=== PATIENT | female | born 1940 | race Native Hawaiian/Other Pacific Islander ===

== ENCOUNTER 2018-07-02 09:41 | Emergency (ER) | payer OTHER ==
[2018-07-02 09:41] VITALS: BMI 34.4
--- NOTE | 2018-07-02 10:22 | ED PDOC ---
HPI: General Adult Time Seen by Provider: 07/02/18 09:51 Chief Complaint (Nursing): Back Pain Past Medical History Vital Signs: Last Vital Signs Temp 98.4 F 07/02/18 09:52 Pulse 65 07/02/18 09:52 Resp 18 07/02/18 09:52 BP 131/69 07/02/18 09:52 Pulse Ox 100 07/02/18 10:22 - Medical History PMH: Anxiety, Asthma, Depression, Diabetes, HTN, Hypercholesterolemia, Peripheral Edema Denies: Chronic Kidney Disease - Family History Family History: States: Unknown Family Hx - Home Medications Home Medications: Ambulatory Orders Medication Instructions Recorded Multivitamin [One Daily] 1 tab PO DAILY 08/22/16 Aspirin [Aspirin Chewable] 81 mg PO DAILY #30 chew 08/25/16 Rosuvastatin Calcium [Crestor] 10 mg PO HS #30 tab 08/25/16 Clopidogrel [Plavix] 75 mg PO DAILY 06/22/17 FLUoxetine [Prozac] 40 mg PO DAILY 06/22/17 Metoprolol Tartrate [Lopressor] 25 mg PO DAILY 06/22/17 clonazePAM [Klonopin] 0.5 mg PO TID 06/22/17 Isosorbide Mononitrate ER [Imdur 90 mg PO DAILY #30 tab 06/23/17 ER] Lisinopril [Zestril] 10 mg PO DAILY #30 tab 06/23/17 Nitrofurantoin Macrocrystals 100 mg PO Q12H #14 cap 06/23/17 [Macrobid] Ranolazine [Ranexa] 500 mg PO BID #60 ter 06/23/17 clonazePAM [Klonopin] 0.5 mg PO TID tab 06/23/17 - Allergies Allergies/Adverse Reactions: Allergies Allergy/AdvReac Type Severity Reaction Status Date / Time No Known Allergies Allergy Verified 08/22/16 19:33 - Laboratory Results Result Diagrams: 07/02/18 10:39 07/02/18 10:39 - ECG O2 Sat by Pulse Oximetry: 100 Medical Decision Making Medical Decision Making: case d/w Dr. Lassiter 10:15am - though asymptomatic and hemodynamically stable, advised cardiac enzyme and discharge for followup with him if normal. Disposition - Clinical Impression Clinical Impression: Chronic back pain, History of stress test, Coronary artery disease - Patient ED Disposition Is Patient to be Admitted: No Doctor Will See Patient In The: Office Counseled Patient/Family Regarding: Diagnosis, Need For Followup - Disposition Referrals: Dayo Lassiter MD [Staff Provider] - Disposition: Routine/Home Disposition Time: 13:00 Condition: STABLE Instructions: Coronary Heart Disease (DC) Forms: [facility] (Pashto) - POA Present On Arrival: None
[2018-07-02 10:57] LABS: BASO # 0.1 K/uL (0.0-0.2); BASO % 0.7 % (0.0-2.0); EOS # 0.3 K/uL (0.0-0.7); EOS % 2.9 % (0.0-4.0); HEMOGLOBIN 12.2 g/dL (12.0-16.0); LYMPH # 1.9 K/uL (1.0-4.3); LYMPH % 20.6 % (20.0-40.0); MEAN CELL VOLUME 94.1 fl (81.0-99.0); MEAN CORPUSCULAR HEMOGLOBIN 32.4 pg (27.0-31.0); MEAN CORPUSCULAR HGB CONC 34.4 g/dL (33.0-37.0); MEAN PLATELET VOLUME 8.4 fl (7.2-11.7); MONO # 0.6 K/uL (0.0-0.8); MONO % 6.9 % (0.0-10.0); NEUT # 6.5 K/uL (1.8-7.0); NEUT % 68.9 % (50.0-75.0); RBC 3.77 Mil/uL (3.80-5.20); RED CELL DISTRIBUTION WIDTH 12.9 % (11.5-14.5); WHITE BLOOD COUNT 9.4 K/uL (4.8-10.8)
[2018-07-02 11:20] LABS: BLOOD UREA NITROGEN 19 mg/dl (7-17); CALCIUM 9.6 mg/dL (8.4-10.2); GFR NON-AFRICAN AMERICAN 54
--- NOTE | 2018-07-02 13:02 | RAD ---
Date of service: 07/02/2018 PROCEDURE: HISTORY: back pain COMPARISON: None TECHNIQUE: Frontal and lateral views of the cervical thoracic and lumbar spine open mouth cervical spine dense view and lumbosacral spot view obtained. FINDINGS: Generalized osteopenia exceptions as listed below Cervical spine: Visualization of the height of the C7 vertebral body on the lateral view is limited on the frontal view it appears intact. The C7 posterior elements however are not well visualized due to the obscuring shoulders here. If further evaluation is clinically indicated here consider CT cervical spine. Anterior spondylotic ridging C5-6 most notable with intervening disc space narrowing. Increased density of the posterior elements/C3 and C4 level C3 posterior elements more sclerotic appearing on lateral view than C4. Apophyseal joints Thoracic spine. Mid thoracic spondylosis. No gross significant appearing compression fracture deformity appreciated. Mid to inferior thoracic intervertebral disc space narrowing suggested. Lumbar spine anterior L1-2 spondylosis with subchondral sclerosis and intervening disc space narrowing. Posterior L3-4 disc space narrowing. L5-S1 and L4-5 facet hypertrophic arthrosis IMPRESSION: Limited exam regarding posterior elements at C7. Correlate clinically in terms of need for additional imaging here. . Spondylosis at cervical thoracic and lumbar levels. Degenerative disc disease changes-all segments L4-5 and L5-S1 facet arthrosis. Generalized osteopenia with the exception of sclerotic changes over the facets and posterior elements at C3
[2018-07-02 13:48] VITALS: PULSE 76
[2018-07-02 13:50] VITALS: BP 128/79; RESP 18; TEMP 98; O2SAT 99
== END 2018-07-02 13:48 | disposition home or self-care (01) ==
LOC: H.ER 09:41
DX: M54.9 Dorsalgia, unspecified (principal); I25.10 Atherosclerotic heart disease of native coronary artery without angina pectoris; E11.9 Type 2 diabetes mellitus without complications; E78.00 Pure hypercholesterolemia, unspecified; I10 Essential (primary) hypertension

== ENCOUNTER 2018-10-24 20:36 | Emergency (ER) | payer OTHER ==
[2018-10-24 20:39] VITALS: BMI 35.5
--- NOTE | 2018-10-24 21:34 | ED PDOC ---
HPI: General Adult Time Seen by Provider: 10/24/18 21:07 Chief Complaint (Nursing): Dizziness/Lightheaded History Per: Patient, Family History/Exam Limitations: no limitations Onset/Duration Of Symptoms: Days Additional Complaint(s): Hx of CAD, DM, HTN, Bipolar Disorder, Depression brought in by son for evaluation of dry mouth, weakness. Son states that for the past week she has had fluctuation in her cognition. States that she recently has changed medications and dosages of lithium, venlafaxine. Also taking klonopin. Son states that patient told him that she felt her blood pressure was going down, felt her mouth go dry, and became very anxious. Denies chest pain, shortness of breath, focal weakness, urinary symptoms, abdominal pain, nausea, vomiting. PMD: Dr. Henderson NIHSS Stroke Scale - Date/Time Evaluation Performed Date Performed: 10/24/18 Time Performed: 21:00 When Was NIHSS Performed: Baseline - How Severe is the Stroke Level of Consciousness: 0=Alert LOC to Questions: 0=Both comments correct LOC to commands: 0=Obeys both correctly Best Gaze: 0=Normal Visual: 0=No visual loss Facial: 0=Normal Motor Arm - Left: 0=No drift Motor Arm - Right: 0=No drift Motor Leg - Left: 0=No drift Motor Leg - Right: 0=No drift Limb Ataxia: 0=Absent Sensory: 0=Normal Best Language: 0=No aphasia Dysarthia: 0=Normal articulation Extinction & Inattention (Neglect): 0=Normal, no object Score: 0 Past Medical History Reviewed: Historical Data, Nursing Documentation, Vital Signs Vital Signs: Last Vital Signs Temp 97.7 F 10/24/18 20:39 Pulse 81 10/24/18 20:39 Resp 16 10/24/18 20:39 BP 122/61 10/24/18 20:39 Pulse Ox 98 10/24/18 20:39 - Medical History PMH: Anxiety, Asthma, Depression, Diabetes, HTN, Hypercholesterolemia, Peripheral Edema Denies: Chronic Kidney Disease - Family History Family History: States: Unknown Family Hx - Home Medications Home Medications: Ambulatory Orders Medication Instructions Recorded Multivitamin [One Daily] 1 tab PO DAILY 08/22/16 Aspirin [Aspirin Chewable] 81 mg PO DAILY #30 chew 08/25/16 Rosuvastatin Calcium [Crestor] 10 mg PO HS #30 tab 08/25/16 Clopidogrel [Plavix] 75 mg PO DAILY 06/22/17 FLUoxetine [Prozac] 40 mg PO DAILY 06/22/17 Metoprolol Tartrate [Lopressor] 25 mg PO DAILY 06/22/17 clonazePAM [Klonopin] 0.5 mg PO TID 06/22/17 Isosorbide Mononitrate ER [Imdur 90 mg PO DAILY #30 tab 06/23/17 ER] Lisinopril [Zestril] 10 mg PO DAILY #30 tab 06/23/17 Nitrofurantoin Macrocrystals 100 mg PO Q12H #14 cap 06/23/17 [Macrobid] Ranolazine [Ranexa] 500 mg PO BID #60 ter 06/23/17 clonazePAM [Klonopin] 0.5 mg PO TID tab 06/23/17 Nitrofurantoin Macrocrystals 100 mg PO BID 5 Days cap 10/25/18 [Macrobid] - Allergies Allergies/Adverse Reactions: Allergies Allergy/AdvReac Type Severity Reaction Status Date / Time No Known Allergies Allergy Verified 10/24/18 20:38 Review of Systems ROS Statement: Except As Marked, All Systems Reviewed And Found Negative Constitutional: Negative for: Fever Cardiovascular: Negative for: Chest Pain, Palpitations, Orthopnea, Paroxysmal Noc. Dyspnea Respiratory: Negative for: Cough, Shortness of Breath Neurological: Positive for: Weakness. Negative for: Numbness, Incoordination, Change in Speech, Confusion, Seizures Psych: Positive for: Anxiety, Depression. Negative for: Suicidal ideation Physical Exam - Reviewed Nursing Documentation Reviewed: Yes Vital Signs Reviewed: Yes - Physical Exam Appears: Positive for: Well, Non-toxic, No Acute Distress Head Exam: Positive for: ATRAUMATIC, NORMAL INSPECTION, NORMOCEPHALIC Skin: Positive for: Normal Color, Warm, DRY Eye Exam: Positive for: EOMI, Normal appearance, PERRL ENT: Positive for: Normal ENT Inspection Neck: Positive for: Normal, Painless ROM Cardiovascular/Chest: Positive for: Regular Rate, Rhythm Respiratory: Positive for: CNT, Normal Breath Sounds Gastrointestinal/Abdominal: Positive for: Normal Exam, Soft Back: Positive for: Normal Inspection Extremity: Positive for: Normal ROM Neurologic/Psych: Positive for: Alert, director media II-XII, Oriented, Mood/Affect (Normal). Negative for: Motor/Sensory Deficits, Aphasia, Facial Droop - Laboratory Results Result Diagrams: 10/24/18 21:40 10/24/18 23:05 - ECG ECG: Positive for: Interpreted By Me ECG Rhythm: Positive for: Normal QRS, Normal ST Segment, Sinus Rhythm Rate: 77 O2 Sat by Pulse Oximetry: 98 Medical Decision Making Medical Decision MakinPM Patient brought in by son for eval of dry mouth, anxiety, and sensation of blood pressure dropping, weakness --Currently vitals are normal, patient has normal EKG and non-focal physcial exam --Explained to patient and son that symptoms may be secondary to side effects of medication, sequeale of psychiatric disease, less likely organic causes such as electrolyte imbalance, heart or kidney disease --Given age and risk factors, will check labs including troponin, CXR 130AM --Patient has UTI on exam --Bloodwork shows mild elevation in WBC count --All results explained to patient and son --Advised to followup with Dr. Henderson, son asking for referral to Psychiatrist --Very well appearing upon discharge Disposition - Clinical Impression Clinical Impression: UTI (urinary tract infection) - Patient ED Disposition Is Patient to be Admitted: No - Disposition Referrals: Elio Henderson MD [Family Provider] - Jadiel Hanson MD [Medical Doctor] - Disposition: Routine/Home Disposition Time: 01:55 Condition: IMPROVED Prescriptions: Nitrofurantoin Macrocrystals [Macrobid] 100 mg PO BID 5 Days cap Instructions: Urinary Tract Infections in Adults Forms: [facility] (Swiss)
[2018-10-24 21:46] LABS: HEMOGLOBIN 12.1 g/dL (12.0-16.0); MEAN CELL VOLUME 97.4 fl (81.0-99.0); MEAN CORPUSCULAR HEMOGLOBIN 31.2 pg (27.0-31.0); RBC 3.89 Mil/uL (3.80-5.20); RED CELL DISTRIBUTION WIDTH 13.6 % (11.5-14.5); WHITE BLOOD COUNT 13.4 K/uL (4.8-10.8)
[2018-10-25 00:39] LABS: CALCIUM 9.5 mg/dL (8.4-10.2)
[2018-10-25 01:42] LABS: SQUAMOUS EPITHIAL 3 /hpf (0-5); URINE BACTERIA RARE (<OCC); URINE BILIRUBIN NEGATIVE (NEGATIVE); URINE BLOOD NEGATIVE (NEGATIVE); URINE CLARITY CLOUDY (Clear); URINE COLOR YELLOW (YELLOW); URINE GLUCOSE (UA) 50 mg/dL (NEGATIVE); URINE LEUKOCYTE ESTERASE MOD Leu/uL (Negative); URINE PROTEIN NEGATIVE (NEGATIVE); URINE UROBILINOGEN 0.2-1.0 mg/dL (0.2-1.0)
[2018-10-25 01:57] VITALS: O2SAT 98
[2018-10-25 02:32] VITALS: BP 123/62; PULSE 83; RESP 15; TEMP 98.9
--- NOTE | 2018-10-25 09:59 | RAD ---
Date of service: 10/24/2018 HISTORY: weakness COMPARISON: Chest radiograph dated 08/22/2016 FINDINGS: LUNGS: No active pulmonary disease. PLEURA: No significant pleural effusion identified, no pneumothorax apparent. CARDIOVASCULAR: Aortic atherosclerotic calcifications. Cardiomediastinal silhouette stably prominent. OSSEOUS STRUCTURES: Unchanged. VISUALIZED UPPER ABDOMEN: Normal. OTHER FINDINGS: None. IMPRESSION: No active disease.
--- NOTE | 2018-10-25 13:08 | CARD ---
APPROVED REPORT Date of service: 10/24/2018 EKG Measurement Heart [id number] <Conclusion> Normal sinus rhythm Normal ECG
== END 2018-10-25 02:32 | disposition home or self-care (01) ==
LOC: H.ER 20:36
DX: N39.0 Urinary tract infection, site not specified (principal); E11.9 Type 2 diabetes mellitus without complications; E78.00 Pure hypercholesterolemia, unspecified; I10 Essential (primary) hypertension

== ENCOUNTER 2018-12-12 10:24 | Inpatient (IN) | payer MEDICAID, SELFPAY ==
[2018-12-12 10:24] VITALS: BMI 29.7
[2018-12-12 12:01] LABS: BASO % 0.6 % (0.0-2.0); EOS # 0.3 K/uL (0.0-0.7); EOS % 4.2 % (0.0-4.0); HEMOGLOBIN 12.3 g/dL (12.0-16.0); LYMPH # 1.9 K/uL (1.0-4.3); LYMPH % 23.9 % (20.0-40.0); MEAN CELL VOLUME 93.6 fl (81.0-99.0); MEAN CORPUSCULAR HEMOGLOBIN 30.8 pg (27.0-31.0); MEAN CORPUSCULAR HGB CONC 32.9 g/dL (33.0-37.0); MEAN PLATELET VOLUME 8.3 fl (7.2-11.7); MONO # 0.6 K/uL (0.0-0.8); MONO % 7.1 % (0.0-10.0); NEUT % 64.2 % (50.0-75.0); RBC 3.97 Mil/uL (3.80-5.20); RED CELL DISTRIBUTION WIDTH 12.7 % (11.5-14.5); WHITE BLOOD COUNT 7.8 K/uL (4.8-10.8)
[2018-12-12 12:08] LABS: BLOOD UREA NITROGEN 15 mg/dl (7-17); CALCIUM 9.3 mg/dL (8.4-10.2); GFR NON-AFRICAN AMERICAN > 60
--- NOTE | 2018-12-12 12:43 | ED PDOC ---
HPI: Chest Pain Time Seen by Provider: 12/12/18 10:49 Chief Complaint (Nursing): Upper Extremity Problem/Injury Chief Complaint (Provider): chest pain History Per: Patient History/Exam Limitations: no limitations Onset/Duration Of Symptoms: Intermittent Episodes (x3 weeks), Worse Since (2 days ago) Additional Complaint(s): 78 year old female with past history of CAD, presents to the emergency department with a complaint of left-sided chest pain that radiated to left arm ongoing intermittently for 3 weeks. Patient states she woke up around 10:00 earlier today with worsen chest pain then took 1 tab of aspirin which did not help. Patient is concern for cardiac event. Additionally, she underwent a chemical stress test 2 days ago by rehabilitation coordinator. PCP: Dr. Kenneth Farr Cardio: Dr. Dayo Lassiter Past Medical History Reviewed: Historical Data, Nursing Documentation, Vital Signs Vital Signs: Last Vital Signs Temp 98.1 F 12/12/18 10:38 Pulse 68 12/12/18 10:38 Resp 18 12/12/18 10:38 BP 135/78 12/12/18 10:38 Pulse Ox 99 12/12/18 10:38 - Medical History PMH: Anxiety, Asthma, Depression, Diabetes, HTN, Hypercholesterolemia, Peripheral Edema Denies: Chronic Kidney Disease - Surgical History Surgical History: Coronary Stent (x2 years ago) - Family History Family History: States: Unknown Family Hx - Home Medications Home Medications: Ambulatory Orders Medication Instructions Recorded Multivitamin [One Daily] 1 tab PO DAILY 08/22/16 Rosuvastatin Calcium [Crestor] 10 mg PO HS #30 tab 08/25/16 Clopidogrel [Plavix] 75 mg PO DAILY 06/22/17 Lisinopril [Zestril] 10 mg PO DAILY #30 tab 06/23/17 Aspirin [Ecotrin] 81 mg PO DAILY 12/12/18 Isosorbide Mononitrate ER [Imdur 30 mg PO DAILY 12/12/18 ER] MetFORMIN ER [Glucophage XR] 500 mg PO DAILY 12/12/18 Metoprolol Succinate XL [Toprol XL] 25 mg PO DAILY 12/12/18 QUEtiapine [Seroquel] 25 mg PO HS 12/12/18 Venlafaxine HCl 75 mg PO DAILY 12/12/18 clonazePAM [Klonopin] 0.5 mg PO Q8 PRN 12/12/18 lamoTRIgine [Lamictal] 100 mg PO DAILY 12/12/18 - Allergies Allergies/Adverse Reactions: Allergies Allergy/AdvReac Type Severity Reaction Status Date / Time No Known Allergies Allergy Verified 10/24/18 20:38 Review of Systems ROS Statement: Except As Marked, All Systems Reviewed And Found Negative Cardiovascular: Positive for: Chest Pain (left-sided) Musculoskeletal: Positive for: Arm Pain (left-sided) Physical Exam - Reviewed Nursing Documentation Reviewed: Yes Vital Signs Reviewed: Yes - Physical Exam Appears: Positive for: No Acute Distress Head Exam: Positive for: ATRAUMATIC, NORMAL INSPECTION, NORMOCEPHALIC Skin: Positive for: Normal Color Eye Exam: Positive for: Normal appearance, EOMI, PERRL Neck: Positive for: Normal, Painless ROM, Supple Cardiovascular/Chest: Positive for: Regular Rate, Rhythm, Other (left chest wall tenderness). Negative for: Chest Non Tender Respiratory: Positive for: Normal Breath Sounds. Negative for: Respiratory Distress Extremity: Positive for: Tenderness (reproducible on palpation exquisitely to left AC joint). Negative for: Pedal Edema, Calf Tenderness, Swelling (left arm) Neurological/Psych: Positive for: Awake, Alert, Oriented (x3). Negative for: Motor/Sensory Deficits - Laboratory Results Result Diagrams: 12/12/18 11:50 12/12/18 11:50 Lab Results: Troponin I < 0.0120 ng/mL (0.00-0.120) 12/12/18 11:50 - ECG O2 Sat by Pulse Oximetry: 99 (RA) Pulse Ox Interpretation: Normal Medical Decision Making Medical Decision Making: Initial Impression: left chest pain with history of CAD Initial Plan: * EKG * Labs Time: 123 --Case discussed with Dr. Lassiter whom states that outpatient stress test is abnormal and that patient will require elective heart catheterization. If ED work-up is negative or unchanged, he will offer to arrange outpatient catheterization electively Time: 123 --EKG: NS with arrhythmia at 60 BMP. Scribe Attestation: Documented by Jona Chávez, acting as a scribe for Maria Del Carmen Gross MD. Provider Scribe Attestation: All medical record entries made by the Scribe were at my direction and personally dictated by me. I have reviewed the chart and agree that the record accurately reflects my personal performance of the history, physical exam, medical decision making, and the department course for this patient. I have also personally directed, reviewed, and agree with the discharge instructions and disposition. patient's family is very concerned about patient's worsening left arm pain and inability to move the arm, along with her deepening depression. After discussion with Dr. Farr, patient will be admitted for observation. Disposition - Clinical Impression Clinical Impression: Chest pain, Shoulder pain, left, Depression - Patient ED Disposition Is Patient to be Admitted: No Doctor Will See Patient In The: Hospital - Disposition Referrals: Elio Henderson MD [Family Provider] - Dayo Lassiter MD [Staff Provider] - Disposition: Transfer of Care Disposition Time: 14:15 Condition: STABLE Additional Instructions: information discussed with Dr. Lassiter. He will arranged for further outpatient testing. Instructions: Chest Pain, Shoulder Pain (DC), Depression Forms: [facility] (Yakut) - Pt Status Changed To: Hospital Disposition Of: Observation - POA Present On Arrival: None
--- NOTE | 2018-12-12 18:42 | CARD ---
APPROVED REPORT Date of service: 12/12/2018 EKG Measurement Heart [id number] <Conclusion> Normal sinus rhythm with sinus arrhythmia Low voltage QRS Borderline ECG
--- NOTE | 2018-12-12 19:14 | CP.PCM.HP ---
History of Present Illness - History of Present Illness History of Present Illness: 89 yo with HX of CAD Depression Asthma NIDDM admitted for intractable shoulder pain Present on Admission - Present on Admission Any Indicators Present on Admission: No Past Patient History - Infectious Disease Hx of Infectious Diseases: None - Past Medical History & Family History Past Medical History?: Yes - Past Social History Smoking Status: Never Smoked - CARDIAC Hx Cardiac Disorders: Yes Hx Hypercholesterolemia: Yes Hx Hypertension: Yes Hx Peripheral Edema: Yes - PULMONARY Hx Respiratory Disorders: Yes Hx Asthma: Yes - NEUROLOGICAL Hx Neurological Disorder: No - HEENT Hx HEENT Problems: No Hx Epistaxis: No - RENAL Hx Chronic Kidney Disease: No - ENDOCRINE/METABOLIC Hx Endocrine Disorders: Yes Hx Diabetes Mellitus Type 2: Yes (borderline, denies medications) - HEMATOLOGICAL/ONCOLOGICAL Hx Blood Disorders: No - INTEGUMENTARY Hx Dermatological Problems: No - MUSCULOSKELETAL/RHEUMATOLOGICAL Hx Musculoskeletal Disorders: Yes Hx Arthritis: Yes Hx Falls: No - GASTROINTESTINAL Hx Gastrointestinal Disorders: No - GENITOURINARY/GYNECOLOGICAL Hx Genitourinary Disorders: No - PSYCHIATRIC Hx Psychophysiologic Disorder: Yes Hx Anxiety: Yes Hx Depression: Yes Hx Substance Use: No - SURGICAL HISTORY Hx Surgeries: No Hx Coronary Stent: Yes (x2 years ago) - ANESTHESIA Hx Anesthesia: Yes Hx Anesthesia Reactions: No Hx Malignant Hyperthermia: No Has any member of the family had a problem w/ anesthesia?: No Meds Allergies/Adverse Reactions: Allergies Allergy/AdvReac Type Severity Reaction Status Date / Time No Known Allergies Allergy Verified 10/24/18 20:38 Physical Exam - Respiratory Exam Respiratory Exam: NORMAL BREATHING PATTERN - Cardiovascular Exam Cardiovascular Exam: REGULAR RHYTHM - GI/Abdominal Exam GI & Abdominal Exam: Normal Bowel Sounds Results - Vital Signs Recent Vital Signs: Last Vital Signs Temp 98.1 F 12/12/18 16:57 Pulse 58 L 12/12/18 16:57 Resp 18 12/12/18 16:57 BP 113/71 12/12/18 16:57 Pulse Ox 95 12/12/18 16:57 - Labs Result Diagrams: 12/12/18 11:50 12/12/18 11:50 Labs: Laboratory Results - last 24 hr 12/12/18 12/12/18 11:50 11:50 WBC 7.8 RBC 3.97 Hgb 12.3 Hct 37.2 MCV 93.6 D MCH 30.8 MCHC 32.9 L RDW 12.7 Plt Count 248 MPV 8.3 Neut % (Auto) 64.2 Lymph % (Auto) 23.9 [place] % (Auto) 7.1 Eos % (Auto) 4.2 H Baso % (Auto) 0.6 Neut # (Auto) 5.0 Lymph # (Auto) 1.9 [place] # (Auto) 0.6 Eos # (Auto) 0.3 Baso # (Auto) 0.0 Sodium 141 Potassium 4.7 Chloride 106 Carbon Dioxide 28 Anion Gap 12 BUN 15 Creatinine 0.8 Est GFR ( Amer) > 60 Est GFR (Non-Af Amer) > 60 Random Glucose 115 H Calcium 9.3 Troponin I < 0.0120 Assessment & Plan - Assessment and Plan (Free Text) Assessment: Intractable shoulder pain PT Physiatry HX of CAD Angina Cardiology Depression Psych Asthma NIDDM - Date & Time Date: 12/05/18
--- NOTE | 2018-12-13 06:59 | CP.PCM.PN ---
Subjective - Date & Time of Evaluation Date of Evaluation: 12/13/18 Time of Evaluation: 22:22 - Subjective Subjective: Above noted Objective - Vital Signs/Intake and Output Vital Signs (last 24 hours): Temp Pulse Resp BP Pulse Ox 97.8 F 72 18 124/78 97 12/13/18 05:00 12/13/18 05:00 12/13/18 05:00 12/13/18 05:00 12/13/18 05:00 - Medications Medications: Current Medications Tramadol HCl (Ultram) 50 mg PO BID PRN PRN Reason: pain 4-6 - Labs Labs: 12/12/18 11:50 12/12/18 11:50 - Respiratory Exam Respiratory Exam: NORMAL BREATHING PATTERN - Cardiovascular Exam Cardiovascular Exam: REGULAR RHYTHM - GI/Abdominal Exam GI & Abdominal Exam: Guarding, Normal Bowel Sounds Assessment and Plan - Assessment and Plan (Free Text) Assessment: Intractable shoulder pain PT Physiatry HX of CAD Angina Cardiology Depression Psych Asthma NIDDM
[2018-12-13] MEDS ORDERED: Patient's Own Med (Biotin [Biotin] 1 CAP) PO SCH (09:00)
--- NOTE | 2018-12-13 09:42 | CP.PCM.CON ---
History of Present Illness - History of Present Illness History of Present Illness: Psychiatry consult note CC: "I have pain" HPI: 78 yo female w/ h/o CAD, Asthma, HTN, DM, Depression and anxiety, admitted for intractable shoulder pain. Patient reports a history of depression and anxiety, but denies any significant worsening of these symptoms and currently reports her mood is neutral and she feels safe in the hospital. She does report that she has memory problems. She denies acute AH/VH/SI/HI. A + O x 3, but unable to name president or name her current medications. PPHx: H/o Depression and Anxiety; reports psychiatric admission in October for worsening depression w/ psychosis. Currently treated with Effexor, Seroquel and Klonopin. Patient also on Lamictal, but unclear if this is for psychiatric reasons as the patient is unable to confirm her medications. PMHx: CAD, Asthma, DM, HTN ALL: NKDA SHx: Lives w/ daughter; denies drugs/etoh/cig use MSE: A + O x 3, calm, cooperative, mood/affect-neutral, speech soft, no AH/VH/SI/HI; thought process- coherent, no delusions; limited I/J due to cognitive impairment Impression: 78 yo female w/ h/o depression and anxiety; likely has Major Neurocognitive Disorder; currently reports that her mood is stable. -No acute psychiatric admission indicted at this time -Continue Effexor and Seroquel -Recommend to taper Klonopin gradually due to potential adverse effects in the elderly Past Patient History - Infectious Disease Hx of Infectious Diseases: None - Past Medical History & Family History Past Medical History?: Yes - Past Social History Smoking Status: Never Smoked - CARDIAC Hx Cardiac Disorders: Yes Hx Hypercholesterolemia: Yes Hx Hypertension: Yes Hx Peripheral Edema: Yes - PULMONARY Hx Respiratory Disorders: Yes Hx Asthma: Yes - NEUROLOGICAL Hx Neurological Disorder: No - HEENT Hx HEENT Problems: No Hx Epistaxis: No - RENAL Hx Chronic Kidney Disease: No - ENDOCRINE/METABOLIC Hx Endocrine Disorders: Yes Hx Diabetes Mellitus Type 2: Yes (borderline, denies medications) - HEMATOLOGICAL/ONCOLOGICAL Hx Blood Disorders: No - INTEGUMENTARY Hx Dermatological Problems: No - MUSCULOSKELETAL/RHEUMATOLOGICAL Hx Musculoskeletal Disorders: Yes Hx Arthritis: Yes Hx Falls: No - GASTROINTESTINAL Hx Gastrointestinal Disorders: No - GENITOURINARY/GYNECOLOGICAL Hx Genitourinary Disorders: No - PSYCHIATRIC Hx Psychophysiologic Disorder: Yes Hx Anxiety: Yes Hx Depression: Yes Hx Substance Use: No - SURGICAL HISTORY Hx Surgeries: No Hx Coronary Stent: Yes (x2 years ago) - ANESTHESIA Hx Anesthesia: Yes Hx Anesthesia Reactions: No Hx Malignant Hyperthermia: No Has any member of the family had a problem w/ anesthesia?: No Meds Allergies/Adverse Reactions: Allergies Allergy/AdvReac Type Severity Reaction Status Date / Time No Known Allergies Allergy Verified 10/24/18 20:38 - Medications Medications: Current Medications Aspirin (Ecotrin) [address] [facility] Last Admin: 12/13/18 09:37 Dose: 81 mg Atorvastatin Calcium (Lipitor) [address] [facility] Clonazepam (Klonopin) 0.25 mg PO DAILY@1800 [facility] Clonazepam (Klonopin) 0.[address] [facility] Last Admin: 12/13/18 09:36 Dose: 0.5 mg Clonazepam (Klonopin) [address] [facility] Clopidogrel Bisulfate (Plavix) [address] [facility] Last Admin: 12/13/18 09:36 Dose: 75 mg Home Med (Biotin [Biotin]) [address] [facility] Isosorbide Mononitrate (Imdur Er) [address] [facility] Lamotrigine (Lamictal) [address] [facility] Lisinopril (Zestril) [address] [facility] Metformin HCl (Glucophage) [address] [facility] Metoprolol Succinate (Toprol Xl) [address] [facility] Multivitamins/Minerals (Therapeutic-M Tab) [address] [facility] Quetiapine Fumarate (Seroquel) [address] [facility] Tramadol HCl (Ultram) 50 mg PO BID PRN PRN Reason: pain 4-6 Venlafaxine HCl (Effexor) [address] [facility] Results - Vital Signs Recent Vital Signs: Last Vital Signs Temp 97.7 F 12/13/18 08:06 Pulse 73 12/13/18 08:06 Resp 18 12/13/18 08:06 BP 147/79 12/13/18 08:06 Pulse Ox 99 12/13/18 08:06 - Labs Result Diagrams: 12/12/18 11:50 12/12/18 11:50 Labs: Laboratory Results - last 24 hr 12/12/18 12/12/18 11:50 11:50 WBC 7.8 RBC 3.97 Hgb 12.3 Hct 37.2 MCV 93.6 D MCH 30.8 MCHC 32.9 L RDW 12.7 Plt Count 248 MPV 8.3 Neut % (Auto) 64.2 Lymph % (Auto) 23.9 [place] % (Auto) 7.1 Eos % (Auto) 4.2 H Baso % (Auto) 0.6 Neut # (Auto) 5.0 Lymph # (Auto) 1.9 [place] # (Auto) 0.6 Eos # (Auto) 0.3 Baso # (Auto) 0.0 Sodium 141 Potassium 4.7 Chloride 106 Carbon Dioxide 28 Anion Gap 12 BUN 15 Creatinine 0.8 Est GFR ( Amer) > 60 Est GFR (Non-Af Amer) > 60 Random Glucose 115 H Calcium 9.3 Troponin I < 0.0120
[2018-12-13] MEDS: Multivitamin With Minerals Tab PO SCH (10:07)
[2018-12-13] MEDS: Metoprolol Succinate 25 mg XL Tab PO SCH (10:11)
--- NOTE | 2018-12-13 12:32 | CP.PCM.CON ---
History of Present Illness - History of Present Illness History of Present Illness: Patient seen/examined. Hisoty of CAD s/p DC/ stent LCx, DM HTN dperession who presents with arm pain. Patient reportedly had chest pain but on questioning and examination the patinet's pain is of the L shoulder, point tenderness, as well as inability to Lift the left arm above the shoulder. The patient has referred pain to the ant erior chest wall. The patient has a recent stress test with mild perfusion abnormalities. The patient's current presentation does not appear consistent with angina. will treat medically for cardiac disease. conitnue antiplatelet therapy Past Patient History - Infectious Disease Hx of Infectious Diseases: None - Past Medical History & Family History Past Medical History?: Yes - Past Social History Smoking Status: Never Smoked - CARDIAC Hx Cardiac Disorders: Yes Hx Hypercholesterolemia: Yes Hx Hypertension: Yes Hx Peripheral Edema: Yes - PULMONARY Hx Respiratory Disorders: Yes Hx Asthma: Yes - NEUROLOGICAL Hx Neurological Disorder: No - HEENT Hx HEENT Problems: No Hx Epistaxis: No - RENAL Hx Chronic Kidney Disease: No - ENDOCRINE/METABOLIC Hx Endocrine Disorders: Yes Hx Diabetes Mellitus Type 2: Yes (borderline, denies medications) - HEMATOLOGICAL/ONCOLOGICAL Hx Blood Disorders: No - INTEGUMENTARY Hx Dermatological Problems: No - MUSCULOSKELETAL/RHEUMATOLOGICAL Hx Musculoskeletal Disorders: Yes Hx Arthritis: Yes Hx Falls: No - GASTROINTESTINAL Hx Gastrointestinal Disorders: No - GENITOURINARY/GYNECOLOGICAL Hx Genitourinary Disorders: No - PSYCHIATRIC Hx Psychophysiologic Disorder: Yes Hx Anxiety: Yes Hx Depression: Yes Hx Substance Use: No - SURGICAL HISTORY Hx Surgeries: No Hx Coronary Stent: Yes (x2 years ago) - ANESTHESIA Hx Anesthesia: Yes Hx Anesthesia Reactions: No Hx Malignant Hyperthermia: No Has any member of the family had a problem w/ anesthesia?: No Meds Allergies/Adverse Reactions: Allergies Allergy/AdvReac Type Severity Reaction Status Date / Time No Known Allergies Allergy Verified 10/24/18 20:38 - Medications Medications: Current Medications Aspirin (Ecotrin) 81 mg PO DAILY [facility] Last Admin: 12/13/18 09:37 Dose: 81 mg Atorvastatin Calcium (Lipitor) 20 mg PO DAILY [facility] Last Admin: 12/13/18 10:09 Dose: 20 mg Clonazepam (Klonopin) 0.25 mg PO DAILY@1800 [facility] Clonazepam (Klonopin) 1 mg PO HS [facility] Clonazepam (Klonopin) 0.5 mg PO DAILY [facility] Clopidogrel Bisulfate (Plavix) 75 mg PO DAILY [facility] Last Admin: 12/13/18 09:36 Dose: 75 mg Home Med (Biotin [Biotin]) 1 cap PO DAILY [facility] Isosorbide Mononitrate (Imdur Er) 30 mg PO DAILY [facility] Last Admin: 12/13/18 10:05 Dose: 30 mg Lamotrigine (Lamictal) 100 mg PO DAILY [facility] Last Admin: 12/13/18 10:09 Dose: 100 mg Lisinopril (Zestril) 10 mg PO DAILY [facility] Last Admin: 12/13/18 10:06 Dose: 10 mg Metformin HCl (Glucophage) 250 mg PO BIDWM [facility] Last Admin: 12/13/18 10:08 Dose: 250 mg Metoprolol Succinate (Toprol Xl) 25 mg PO DAILY [facility] Last Admin: 12/13/18 10:11 Dose: 25 mg Multivitamins/Minerals (Therapeutic-M Tab) 1 tab PO DAILY [facility] Last Admin: 12/13/18 10:07 Dose: 1 tab Quetiapine Fumarate (Seroquel) 25 mg PO HS [facility] Tramadol HCl (Ultram) 50 mg PO BID PRN PRN Reason: pain 4-6 Venlafaxine HCl (Effexor) 75 mg PO DAILY [facility] Last Admin: 12/13/18 10:10 Dose: 75 mg Results - Vital Signs Recent Vital Signs: Last Vital Signs Temp 97.7 F 12/13/18 09:00 Pulse 73 12/13/18 10:11 Resp 18 12/13/18 09:00 BP 147/79 12/13/18 10:11 Pulse Ox 99 12/13/18 09:00 - Labs Result Diagrams: 12/12/18 11:50 12/12/18 11:50
--- NOTE | 2018-12-13 13:19 | CP.PCM.CON ---
History of Present Illness - History of Present Illness History of Present Illness: ID: 78 yo female CC L shoulder pain and restricted L shoulder rom HPI- pt with several month hx of L shoulder pain and rstricted rom Pt admitted for chest pain; incidental complain L shoulder pain and restiucted L shouldr ROM Past Patient History - Infectious Disease Hx of Infectious Diseases: None - Past Medical History & Family History Past Medical History?: Yes - Past Social History Smoking Status: Never Smoked - CARDIAC Hx Cardiac Disorders: Yes Hx Hypercholesterolemia: Yes Hx Hypertension: Yes Hx Peripheral Edema: Yes - PULMONARY Hx Respiratory Disorders: Yes Hx Asthma: Yes - NEUROLOGICAL Hx Neurological Disorder: No - HEENT Hx HEENT Problems: No Hx Epistaxis: No - RENAL Hx Chronic Kidney Disease: No - ENDOCRINE/METABOLIC Hx Endocrine Disorders: Yes Hx Diabetes Mellitus Type 2: Yes (borderline, denies medications) - HEMATOLOGICAL/ONCOLOGICAL Hx Blood Disorders: No - INTEGUMENTARY Hx Dermatological Problems: No - MUSCULOSKELETAL/RHEUMATOLOGICAL Hx Musculoskeletal Disorders: Yes Hx Arthritis: Yes Hx Falls: No - GASTROINTESTINAL Hx Gastrointestinal Disorders: No - GENITOURINARY/GYNECOLOGICAL Hx Genitourinary Disorders: No - PSYCHIATRIC Hx Psychophysiologic Disorder: Yes Hx Anxiety: Yes Hx Depression: Yes Hx Substance Use: No - SURGICAL HISTORY Hx Surgeries: No Hx Coronary Stent: Yes (x2 years ago) - ANESTHESIA Hx Anesthesia: Yes Hx Anesthesia Reactions: No Hx Malignant Hyperthermia: No Has any member of the family had a problem w/ anesthesia?: No Meds Allergies/Adverse Reactions: Allergies Allergy/AdvReac Type Severity Reaction Status Date / Time No Known Allergies Allergy Verified 10/24/18 20:38 - Medications Medications: Current Medications Aspirin (Ecotrin) 81 mg PO DAILY [facility] Last Admin: 12/13/18 09:37 Dose: 81 mg Atorvastatin Calcium (Lipitor) 20 mg PO DAILY [facility] Last Admin: 12/13/18 10:09 Dose: 20 mg Clonazepam (Klonopin) 0.25 mg PO DAILY@1800 [facility] Clonazepam (Klonopin) 1 mg PO HS [facility] Clonazepam (Klonopin) 0.5 mg PO DAILY [facility] Clopidogrel Bisulfate (Plavix) 75 mg PO DAILY [facility] Last Admin: 12/13/18 09:36 Dose: 75 mg Home Med (Biotin [Biotin]) 1 cap PO DAILY [facility] Isosorbide Mononitrate (Imdur Er) 30 mg PO DAILY [facility] Last Admin: 12/13/18 10:05 Dose: 30 mg Lamotrigine (Lamictal) 100 mg PO DAILY [facility] Last Admin: 12/13/18 10:09 Dose: 100 mg Lisinopril (Zestril) 10 mg PO DAILY [facility] Last Admin: 12/13/18 10:06 Dose: 10 mg Metformin HCl (Glucophage) 250 mg PO BIDWM [facility] Last Admin: 12/13/18 10:08 Dose: 250 mg Metoprolol Succinate (Toprol Xl) 25 mg PO DAILY [facility] Last Admin: 12/13/18 10:11 Dose: 25 mg Multivitamins/Minerals (Therapeutic-M Tab) 1 tab PO DAILY [facility] Last Admin: 12/13/18 10:07 Dose: 1 tab Quetiapine Fumarate (Seroquel) 25 mg PO HS [facility] Tramadol HCl (Ultram) 50 mg PO BID PRN PRN Reason: pain 4-6 Venlafaxine HCl (Effexor) 75 mg PO DAILY [facility] Last Admin: 12/13/18 10:10 Dose: 75 mg Physical Exam - Additional Findings Additional findings: O/E: systemic exam as per Dr Yanes cardiology exam as per DR Lassiter Musculoskekeltal exam stance /gait defrred dysrythmic scapulothoracic moiton L shoulder ROM L shoulder restircteed no gross progressive neuor deficits Xray- negative Results - Vital Signs Recent Vital Signs: Last Vital Signs Temp 97.7 F 12/13/18 09:00 Pulse 73 12/13/18 10:11 Resp 18 12/13/18 09:00 BP 147/79 12/13/18 10:11 Pulse Ox 99 12/13/18 09:00 - Labs Result Diagrams: 12/12/18 11:50 12/12/18 11:50 - Impressions Impression: Xray- L shpoulder negative for fx dislocation Assessment & Plan - Assessment and Plan (Free Text) Assessment: A- rototaor cuff tenbdoitisa vs bursitis L shoder P_ conservative mgmt physical tjherapy/ NSAIDS as per DR Yanes
--- NOTE | 2018-12-13 18:35 | RAD ---
Date of service: 12/13/2018 PROCEDURE: Radiographs of the Left Shoulder HISTORY: Pain to the left shoulder COMPARISON: No prior. FINDINGS: BONES: Normal. No fracture. JOINTS: Normal. Glenohumeral and acromioclavicular joints preserved. No osteoarthritis. SOFT TISSUES: Normal. OTHER FINDINGS: None. IMPRESSION: Normal radiographs of the left shoulder.
[2018-12-14] MEDS: Multivitamin With Minerals Tab PO SCH (09:32)
[2018-12-14] MEDS: Metoprolol Succinate 25 mg XL Tab PO SCH (09:34)
[2018-12-15] MEDS: Metoprolol Succinate 25 mg XL Tab PO SCH (08:40)
[2018-12-15] MEDS: Multivitamin With Minerals Tab PO SCH (08:40)
--- NOTE | 2018-12-15 18:38 | CP.PCM.PN ---
Subjective - Date & Time of Evaluation Date of Evaluation: 12/15/18 Time of Evaluation: 22:22 - Subjective Subjective: Above noted Objective - Vital Signs/Intake and Output Vital Signs (last 24 hours): Temp Pulse Resp BP Pulse Ox 98.3 F 83 20 119/71 95 12/15/18 15:36 12/15/18 15:36 12/15/18 15:36 12/15/18 15:36 12/15/18 15:36 - Medications Medications: Current Medications Aspirin (Ecotrin) 81 mg PO DAILY [facility] Last Admin: 12/15/18 08:41 Dose: 81 mg Atorvastatin Calcium (Lipitor) 20 mg PO DAILY [facility] Last Admin: 12/15/18 08:40 Dose: 20 mg Clonazepam (Klonopin) 0.25 mg PO DAILY@1800 [facility] Last Admin: 12/15/18 18:07 Dose: 0.25 mg Clonazepam (Klonopin) 1 mg PO HS [facility] Last Admin: 12/14/18 21:34 Dose: 1 mg Clonazepam (Klonopin) 0.5 mg PO DAILY [facility] Last Admin: 12/15/18 08:45 Dose: 0.5 mg Clopidogrel Bisulfate (Plavix) 75 mg PO DAILY [facility] Last Admin: 12/15/18 08:40 Dose: 75 mg Home Med (Biotin [Biotin]) 1 cap PO DAILY [facility] Isosorbide Mononitrate (Imdur Er) 30 mg PO DAILY [facility] Last Admin: 12/15/18 08:41 Dose: 30 mg Lamotrigine (Lamictal) 100 mg PO DAILY [facility] Last Admin: 12/15/18 08:40 Dose: 100 mg Lisinopril (Zestril) 10 mg PO DAILY [facility] Last Admin: 12/15/18 08:39 Dose: 10 mg Metformin HCl (Glucophage) 250 mg PO BIDWM [facility] Last Admin: 12/15/18 16:38 Dose: 250 mg Metoprolol Succinate (Toprol Xl) 25 mg PO DAILY [facility] Last Admin: 12/15/18 08:40 Dose: 25 mg Multivitamins/Minerals (Therapeutic-M Tab) 1 tab PO DAILY [facility] Last Admin: 12/15/18 08:40 Dose: 1 tab Quetiapine Fumarate (Seroquel) 25 mg PO HS [facility] Last Admin: 12/14/18 21:35 Dose: 25 mg Venlafaxine HCl (Effexor) 75 mg PO DAILY [facility] Last Admin: 12/15/18 08:41 Dose: 75 mg - Labs Labs: 12/12/18 11:50 12/12/18 11:50 - Respiratory Exam Respiratory Exam: NORMAL BREATHING PATTERN - Cardiovascular Exam Cardiovascular Exam: REGULAR RHYTHM - GI/Abdominal Exam GI & Abdominal Exam: Normal Bowel Sounds Assessment and Plan - Assessment and Plan (Free Text) Assessment: Intractable shoulder pain PT Physiatry HX of CAD Angina Cardiology Depression Psych Asthma NIDDM
--- NOTE | 2018-12-15 19:42 | CP.PCM.PN ---
Subjective - Date & Time of Evaluation Date of Evaluation: 12/15/18 Time of Evaluation: 15:00 - Subjective Subjective: Patient seen and examined at bedside comfortable. Son at bedside. She notes her pain has significantly improved. She did not tolerate MRI well this AM, will try again this afternoon with son bedside. No other complaints. Objective - Vital Signs/Intake and Output Vital Signs (last 24 hours): Temp Pulse Resp BP Pulse Ox 98.3 F 83 20 119/71 95 12/15/18 15:36 12/15/18 15:36 12/15/18 15:36 12/15/18 15:36 12/15/18 15:36 - Medications Medications: Current Medications Aspirin (Ecotrin) 81 mg PO DAILY [facility] Last Admin: 12/15/18 08:41 Dose: 81 mg Atorvastatin Calcium (Lipitor) 20 mg PO DAILY [facility] Last Admin: 12/15/18 08:40 Dose: 20 mg Clonazepam (Klonopin) 0.25 mg PO DAILY@1800 [facility] Last Admin: 12/15/18 18:07 Dose: 0.25 mg Clonazepam (Klonopin) 1 mg PO HS [facility] Last Admin: 12/14/18 21:34 Dose: 1 mg Clonazepam (Klonopin) 0.5 mg PO DAILY [facility] Last Admin: 12/15/18 08:45 Dose: 0.5 mg Clopidogrel Bisulfate (Plavix) 75 mg PO DAILY [facility] Last Admin: 12/15/18 08:40 Dose: 75 mg Home Med (Biotin [Biotin]) 1 cap PO DAILY [facility] Isosorbide Mononitrate (Imdur Er) 30 mg PO DAILY [facility] Last Admin: 12/15/18 08:41 Dose: 30 mg Lamotrigine (Lamictal) 100 mg PO DAILY [facility] Last Admin: 12/15/18 08:40 Dose: 100 mg Lisinopril (Zestril) 10 mg PO DAILY [facility] Last Admin: 12/15/18 08:39 Dose: 10 mg Metformin HCl (Glucophage) 250 mg PO BIDWM [facility] Last Admin: 12/15/18 16:38 Dose: 250 mg Metoprolol Succinate (Toprol Xl) 25 mg PO DAILY [facility] Last Admin: 12/15/18 08:40 Dose: 25 mg Multivitamins/Minerals (Therapeutic-M Tab) 1 tab PO DAILY [facility] Last Admin: 12/15/18 08:40 Dose: 1 tab Quetiapine Fumarate (Seroquel) 25 mg PO HS [facility] Last Admin: 12/14/18 21:35 Dose: 25 mg Venlafaxine HCl (Effexor) 75 mg PO DAILY [facility] Last Admin: 12/15/18 08:41 Dose: 75 mg - Labs Labs: 12/12/18 11:50 12/12/18 11:50 - Extremities Exam Additional comments: L shoulder: mild anterior/lateral tenderness painful ROM, FF to 50 deg sensation and motor intact MN/UN/RN/AXN radial pulse intact Assessment and Plan (1) Left shoulder tendinitis Assessment & Plan: Left shoulder rotator cuff tendonosis vs bursitis -PT/OT ROM and strengthening -NSAID's as per medicine -f/u L shoulder MRI -above d/w Dr. Sanchez in agreement Status: Acute
[2018-12-16] MEDS: Multivitamin With Minerals Tab PO SCH (08:53)
[2018-12-16] MEDS: Metoprolol Succinate 25 mg XL Tab PO SCH (08:54)
--- NOTE | 2018-12-16 12:18 | CP.PCM.PN ---
Subjective - Date & Time of Evaluation Date of Evaluation: 12/16/18 Time of Evaluation: 12:18 - Subjective Subjective: Patient seen and examined at bedside. Pain well controlled. Tolerated MRI well yesterday. No other complaints. Objective - Vital Signs/Intake and Output Vital Signs (last 24 hours): Temp Pulse Resp BP Pulse Ox 97.9 F 78 18 114/71 97 12/16/18 12:00 12/16/18 12:00 12/16/18 12:00 12/16/18 12:00 12/16/18 12:00 - Medications Medications: Current Medications Aspirin (Ecotrin) 81 mg PO DAILY [facility] Last Admin: 12/16/18 08:52 Dose: 81 mg Atorvastatin Calcium (Lipitor) 20 mg PO DAILY [facility] Last Admin: 12/16/18 08:53 Dose: 20 mg Clonazepam (Klonopin) 0.25 mg PO DAILY@1800 [facility] Last Admin: 12/15/18 18:07 Dose: 0.25 mg Clonazepam (Klonopin) 1 mg PO HS [facility] Last Admin: 12/15/18 21:30 Dose: 1 mg Clonazepam (Klonopin) 0.5 mg PO DAILY [facility] Last Admin: 12/16/18 08:57 Dose: 0.5 mg Clopidogrel Bisulfate (Plavix) 75 mg PO DAILY [facility] Last Admin: 12/16/18 08:53 Dose: 75 mg Home Med (Biotin [Biotin]) 1 cap PO DAILY [facility] Isosorbide Mononitrate (Imdur Er) 30 mg PO DAILY [facility] Last Admin: 12/16/18 08:52 Dose: 30 mg Lamotrigine (Lamictal) 100 mg PO DAILY [facility] Last Admin: 12/16/18 08:53 Dose: 100 mg Lisinopril (Zestril) 10 mg PO DAILY [facility] Last Admin: 12/16/18 08:54 Dose: 10 mg Metformin HCl (Glucophage) 250 mg PO BIDWM [facility] Last Admin: 12/16/18 08:52 Dose: 250 mg Metoprolol Succinate (Toprol Xl) 25 mg PO DAILY [facility] Last Admin: 12/16/18 08:54 Dose: 25 mg Multivitamins/Minerals (Therapeutic-M Tab) 1 tab PO DAILY [facility] Last Admin: 12/16/18 08:53 Dose: 1 tab Quetiapine Fumarate (Seroquel) 25 mg PO HS [facility] Last Admin: 12/15/18 21:30 Dose: 25 mg Venlafaxine HCl (Effexor) 75 mg PO DAILY [facility] Last Admin: 12/16/18 08:52 Dose: 75 mg - Labs Labs: 12/12/18 11:50 12/12/18 11:50 - Extremities Exam Additional comments: L shoulder: mild anterior/lateral tenderness painful ROM sensation and motor intact MN/UN/RN/AXN radial pulse intact Assessment and Plan (1) Left shoulder tendinitis Assessment & Plan: MRI reveals partial tear of infraspinatus tendon and rotator cuff tendinopathy, and GH OA. -PT/OT ROM and strengthening -NSAID's as per medicine -orthopedically stable for discharge -f/u in Dr. Sanchez's [facility] clinic 01/06/19 -above d/w Dr. Sanchez in agreement Status: Acute
[2018-12-16 16:20] VITALS: BP 110/73; PULSE 81; RESP 16; TEMP 97.8; O2SAT 96
--- NOTE | 2018-12-16 18:27 | CP.PCM.PN ---
Subjective - Date & Time of Evaluation Date of Evaluation: 12/16/18 Time of Evaluation: 22:22 - Subjective Subjective: MRI report?? Objective - Vital Signs/Intake and Output Vital Signs (last 24 hours): Temp Pulse Resp BP Pulse Ox 97.8 F 81 16 110/73 96 12/16/18 16:20 12/16/18 16:20 12/16/18 16:20 12/16/18 16:20 12/16/18 16:20 - Labs Labs: 12/12/18 11:50 12/12/18 11:50 Assessment and Plan - Assessment and Plan (Free Text) Assessment: Intractable shoulder pain MRI ?? PT Physiatry HX of CAD Angina Cardiology Depression Psych Asthma NIDDM
== END 2018-12-16 18:20 | disposition home or self-care (01) | DRG 351 ==
LOC: H.ER 10:24 → H.ERHOLD 14:32 → H.TEL 16:30 → OBSVTOIN 12-14 14:32
PROVIDERS: ADMIT Family Medicine Geriatric Medicine; ATTEND Family Medicine Geriatric Medicine
DX: M75.92 Shoulder lesion, unspecified, left shoulder (principal); E11.9 Type 2 diabetes mellitus without complications; F01.50 Vascular dementia, unspecified severity, without behavioral disturbance, psychotic disturbance, mood disturbance, and anxiety; I10 Essential (primary) hypertension; I25.10 Atherosclerotic heart disease of native coronary artery without angina pectoris; F32.9 Major depressive disorder, single episode, unspecified; J45.909 Unspecified asthma, uncomplicated; Z95.5 Presence of coronary angioplasty implant and graft; E78.00 Pure hypercholesterolemia, unspecified; F41.9 Anxiety disorder, unspecified; Z79.02 Long term (current) use of antithrombotics/antiplatelets; Z79.82 Long term (current) use of aspirin; Z79.84 Long term (current) use of oral hypoglycemic drugs; M19.012 Primary osteoarthritis, left shoulder